=== PATIENT | female | born 1975 | race African-American/Black ===

== ENCOUNTER 2017-08-05 08:14 | Emergency (ER) | payer SELFPAY ==
[2017-08-05] MEDS ORDERED: LIDOCAINE 2% VISCOUS SOLN 20 ML UDCUP PO ONE (08:43)
[2017-08-05] MEDS ORDERED: HYDROCODONE/ACETAMINOPHEN 5-325 MG (6 TAB/ER DISP) PO PRN (09:32)
--- NOTE | 2017-08-05 09:37 | ER Document Report ---
ED General - General Chief Complaint: Abscess Stated Complaint: MOUTH PAIN Time Seen by Provider: 08/05/17 08:34 Mode of Arrival: Ambulatory Information source: Patient Notes: Patient is a 42-year-old female who presents to the ER today for large lump that is painful to the roof of her mouth 2 days. Patient states that last week she was having some dental pain to the upper left side, but that it does not hurt anymore around her teeth, just around this lump. Patient has not seen a dentist for this. She denies any drainage, fever, chills, history of MRSA. TRAVEL OUTSIDE OF THE [place] IN LAST 30 DAYS: No - Related Data Allergies/Adverse Reactions: No Known Allergies Allergy (Verified 08/05/17 08:18) Past Medical History - General Information source: Patient - Social History Smoking Status: Current Every Day Smoker Frequency of alcohol use: Occasional Drug Abuse: None Family History: None Patient has suicidal ideation: No Patient has homicidal ideation: No - Past Medical History Cardiac Medical History: Reports: Hx Hypertension Renal/ Medical History: Denies: Hx Peritoneal Dialysis - Immunizations Hx Diphtheria, Pertussis, Tetanus Vaccination: Yes Review of Systems - Review of Systems Constitutional: No symptoms reported EENT: See HPI Cardiovascular: No symptoms reported Respiratory: No symptoms reported Gastrointestinal: No symptoms reported Genitourinary: No symptoms reported Female Genitourinary: No symptoms reported Musculoskeletal: No symptoms reported Skin: No symptoms reported Hematologic/Lymphatic: No symptoms reported Neurological/Psychological: No symptoms reported Physical Exam - Vital signs Vitals: Temp Pulse Resp BP Pulse Ox 98.1 F 103 H 18 163/104 H 100 08/05/17 08:18 08/05/17 08:18 08/05/17 08:18 08/05/17 08:18 08/05/17 08:18 - Notes Notes: PHYSICAL EXAMINATION: GENERAL: Uncomfortable appearing, but in no acute distress. HEAD: Atraumatic, normocephalic. EYES: Pupils equal round and reactive to light, extraocular movements intact, sclera anicteric, conjunctiva are normal. ENT: ear canals without erythema or foreign body, TMs pearly [place] with good bony landmarks, nares patent, oropharynx clear without exudates. Moist mucous membranes. Poor dentition, large, 3 cm in diameter abscess to the hard palate, tender to palpation, purulence visible NECK: Normal range of motion, supple without lymphadenopathy LUNGS: CTAB and equal. No wheezes rales or rhonchi. HEART: Regular rate and rhythm without murmurs EXTREMITIES: Normal range of motion, no pitting edema. No cyanosis. NEUROLOGICAL: Cranial nerves grossly intact. Normal sensory/motor exams. PSYCH: Normal mood, normal affect. SKIN: Warm, Dry, normal turgor, no rashes or lesions noted Course - Re-evaluation Re-evalutation: 08/05/17 09:35 Abscess was drained successfully, first with 18-gauge needle producing approximately 3 cc of thick white purulence, then was numbed with lidocaine and incised with a scalpel, and drained until abscess was flat, patient tolerated procedure - Vital Signs Vital signs: Temp Pulse Resp BP Pulse Ox 98.1 F 103 H 18 163/104 H 100 08/05/17 08:18 08/05/17 08:18 08/05/17 08:18 08/05/17 08:18 08/05/17 08:18 Discharge - Discharge Clinical Impression: Abscess of mouth Condition: Stable Disposition: HOME, SELF-CARE Additional Instructions: Return immediately for any new or worsening symptoms. Follow up with primary care provider, call tomorrow to make followup appointment. See a dentist. Prescriptions: Amoxicillin 500 mg PO TID #30 capsule Referrals: [facility] [Provider Group] - Follow up as needed
[2017-08-05 09:44] VITALS: BP 132/84
== END 2017-08-05 09:54 | disposition home or self-care (01) ==
LOC: ER 08:14
PROC: 0C92XZZ Drainage of Hard Palate, External Approach (ICD-10-PCS; principal; 2017-08-05)
DX: K04.7 Periapical abscess without sinus (principal); K08.89 Other specified disorders of teeth and supporting structures; F17.200 Nicotine dependence, unspecified, uncomplicated; I10 Essential (primary) hypertension
CPT/HCPCS: 99283; 87070; 87205; 87075; 87077; 41800; J3490

== ENCOUNTER 2017-08-20 10:46 | Emergency (ER) | payer SELFPAY ==
[2017-08-20 11:17] LABS: ABSOLUTE EOSINOPHILS # (AUTO) 0.3 10^3/uL (0.0-0.6); ABSOLUTE LYMPHOCYTES (AUTO) 2.3 10^3/uL (0.5-4.7); ABSOLUTE MONOCYTES (AUTO) 0.4 10^3/uL (0.1-1.4); ABSOLUTE NEUT (AUTO) 5.3 10^3/uL (1.7-8.2); BASOPHILS % (AUTO) 0.6 % (0-2); EOSINOPHILS % (AUTO) 3.8 % (0-6); HEMATOCRIT 42.8 % (36.0-47.0); HEMOGLOBIN 14.7 g/dL (12.0-15.5); LYMPHOCYTES % (AUTO) 27.6 % (13-45); MEAN CORPUSCULAR HEMOGLOBIN 30.7 pg (27.0-33.4); MEAN CORPUSCULAR HGB CONC 34.3 g/dL (32.0-36.0); MEAN CORPUSCULAR VOLUME 90 fl (80-97); MONOCYTES % (AUTO) 4.9 % (3-13); PLATELET COUNT 476 10^3/uL (150-450); RED BLOOD COUNT 4.77 10^6/uL (3.72-5.28); RED CELL DISTRIBUTION WIDTH 14.2 % (11.5-14.0); SEGMENTED NEUTROPHILS % (AUTO) 63.1 % (42-78); TOTAL CELLS COUNTED % (AUTO) 100 %; WHITE BLOOD COUNT 8.5 10^3/uL (4.0-10.5)
--- NOTE | 2017-08-20 11:32 | ER Document Report ---
ED GI/ - General Chief Complaint: Urinary Problem Stated Complaint: BLOOD IN URINE Time Seen by Provider: 08/20/17 11:32 Mode of Arrival: Ambulatory Information source: Patient Notes: 42-year-old female complaining of pelvic pain. [place] was painful on . She started having urinary frequency urgency and dysuria on Sunday. She states her vagina is swollen. No flank pain or fever. No nausea or vomiting. Patient has an IUD TRAVEL OUTSIDE OF THE [place] IN LAST 30 DAYS: No - Related Data Allergies/Adverse Reactions: No Known Allergies Allergy (Verified 08/20/17 10:58) Past Medical History - General Information source: Patient - Social History Smoking Status: Current Every Day Smoker Chew tobacco use (# tins/day): No Frequency of alcohol use: Occasional Drug Abuse: None Lives with: Spouse/Significant other Family History: None Patient has suicidal ideation: No Patient has homicidal ideation: No - Past Medical History Cardiac Medical History: Reports: Hx Hypertension Renal/ Medical History: Denies: Hx Peritoneal Dialysis Past Surgical History: Reports: Hx Tubal Ligation - Immunizations Hx Diphtheria, Pertussis, Tetanus Vaccination: Yes Review of Systems - Review of Systems Constitutional: No symptoms reported EENT: No symptoms reported Cardiovascular: No symptoms reported Respiratory: No symptoms reported Gastrointestinal: No symptoms reported Genitourinary: See HPI Female Genitourinary: See HPI Musculoskeletal: No symptoms reported Skin: No symptoms reported Hematologic/Lymphatic: No symptoms reported Neurological/Psychological: No symptoms reported Physical Exam - Vital signs Vitals: Temp Pulse BP Pulse Ox 97.9 F 108 H 115/95 H 98 08/20/17 11:36 08/20/17 11:36 08/20/17 11:36 08/20/17 11:36 Interpretation: Normal - Notes Notes: Patient is walking forward bent from the waist - General General appearance: Appears well, Alert - HEENT Head: Normocephalic, Atraumatic Eyes: Normal Conjunctiva: Normal Pupils: PERRL Neck: Supple. No: Lymphadenopathy - Respiratory Respiratory status: No respiratory distress Chest status: Nontender Breath sounds: Normal Chest palpation: Normal - Cardiovascular Rhythm: Regular Heart sounds: Normal auscultation Murmur: No - Abdominal Inspection: Normal Distension: No distension Bowel sounds: Normal Tenderness: Nontender, Tender - Suprapubic Organomegaly: No organomegaly - Genitourinary External exam: Other - right Bartholin's gland cyst which is nontender or red Speculum exam: Cervix closed, Vaginal discharge - creamy yellow Vaginal bleeding: None Bimanuel exam: Cervical motion tender - Back Back: Normal, Nontender - Extremities General upper extremity: Normal inspection, Nontender, Normal color, Normal ROM , Normal temperature General lower extremity: Normal inspection, Nontender, Normal color, Normal ROM , Normal temperature, Normal weight bearing. No: Christina's sign - Neurological Neuro grossly intact: Yes Cognition: Normal Orientation: AAOx4 [place] Coma Scale Eye Opening: Spontaneous [place] Coma Scale Verbal: Oriented [place] Coma Scale Motor: Obeys Commands [place] Coma Scale Total: 15 Speech: Normal Motor strength normal: LUE, RUE, LLE, RLE Sensory: Normal - Psychological Associated symptoms: Normal affect, Normal mood - Skin Skin Temperature: Warm Skin Moisture: Dry Skin Color: Normal Course - Re-evaluation Re-evalutation: 08/20/17 12:22 Urine with greater than 182 WBCs and greater than 182 RBCs indicating urinary tract infection with a positive nitrite trace of bacteria. urine culture and is pending 08/20/17 12:56 Patient having pain and she wants it treated and nausea no vomiting. Did not eat anything today. - Vital Signs Vital signs: Temp Pulse Resp BP Pulse Ox 97.9 F 108 H 115/95 H 98 08/20/17 11:36 08/20/17 11:36 08/20/17 11:36 08/20/17 11:36 - Laboratory Result Diagrams: 08/20/17 11:05 08/20/17 11:05 Laboratory results interpreted by me: 08/20/17 08/20/17 11:05 11:05 RDW 14.2 H Plt Count 476 H Urine Protein >=500 H Urine Blood MODERATE H Urine Nitrite POSITIVE H Ur Leukocyte Esterase LARGE H Discharge - Discharge Clinical Impression: Bartholin gland cyst, Pelvic pain, Vaginal discharge, Trichomoniasis Urinary tract infection Qualifiers: Urinary tract infection type: acute cystitis Hematuria presence: with hematuria Qualified Code(s): N30.01 - Acute cystitis with hematuria Condition: Good Disposition: HOME, SELF-CARE Instructions: Azithromycin ([facility]), Cephalexin ([facility]), Rocephin ([facility]), Urinary Anesthetic Agent ([facility]), Urinary Tract Infection ([facility]), Metronidazole ([facility]) Additional Instructions: warm compress rocephin given for the urinary tract infection and possible gonorrhea azithromycin for possible chlamydia pyridium for urinary pain\ keflex four times per day for urinary tract infection see obgyn if the bartholin gland continues to be swollen if the cyst gets bigger if more painful return to er no alcohol with the flagyl (metronidazole) call me in 2 hours for the gonorrhea and chlamydia std test results Prescriptions: Promethazine HCl [Phenergan 25 mg Tablet] 25 mg PO Q4HP PRN #20 tablet PRN Reason: Ibuprofen [Motrin 800 mg Tablet] 800 mg PO Q8HP PRN #30 tablet PRN Reason: Cephalexin Monohydrate [Keflex 500 mg Capsule] 500 mg PO QID #28 capsule Metronidazole 2,000 mg PO ONCE PRN #4 tablet PRN Reason: Phenazopyridine HCl [Pyridium 100 Mg Tablet] 100 mg PO TIDP PRN #10 tablet PRN Reason: Referrals: DONIS BURDICK MD [ACTIVE STAFF] - Follow up as needed
[2017-08-20 11:37] LABS: ALANINE AMINOTRANSFERASE 28 U/L (9-52); ALBUMIN 4.4 g/dL (3.5-5.0); ALKALINE PHOSPHATASE 64 U/L (38-126); ANION GAP 14 (5-19); ASPARTATE AMINO TRANSFERASE 16 U/L (14-36); BILIRUBIN,DIRECT 0.3 mg/dL (0.0-0.4); BILIRUBIN,TOTAL 0.5 mg/dL (0.2-1.3); BLOOD UREA NITROGEN 11 mg/dL (7-20); CALCIUM 10.1 mg/dL (8.4-10.2); CARBON DIOXIDE 23 mmol/L (22-30); CHLORIDE 107 mmol/L (98-107); GLUCOSE 97 mg/dL (75-110); LIPASE 75.5 U/L (23-300); POTASSIUM 4.4 mmol/L (3.6-5.0); SODIUM 144.1 mmol/L (137-145); TOTAL PROTEIN 7.8 g/dL (6.3-8.2)
[2017-08-20 12:09] LABS: APPEARANCE,URINE TURBID; BILIRUBIN,URINE NEGATIVE (NEGATIVE); GLUCOSE, URINE NEGATIVE (NEGATIVE); KETONES,URINE NEGATIVE (NEGATIVE); LEUKOCYTE ESTERASE,URINE LARGE (NEGATIVE); NITRITE,URINE POSITIVE (NEGATIVE); PROTEIN,URINE >=500 mg/dL (NEGATIVE); URINE SPECIFIC GRAVITY 1.018; UROBILINOGEN,URINE NEGATIVE mg/dL (<2.0)
[2017-08-20 12:10] LABS: COLOR,URINE AMBER
[2017-08-20] MEDS ORDERED: CEFTRIAXONE INJ 1000 MG VIAL IM ONE (12:21)
[2017-08-20] MEDS ORDERED: LIDOCAINE 1% INJ-PF (10 MG/ML) 30 ML SDV INFIL ONE (12:21)
[2017-08-20] MEDS ORDERED: ONDANSETRON HCL INJ/PF 4 MG/2 ML SDV IV ONE (12:55)
[2017-08-20] MEDS ORDERED: MORPHINE SULFATE 10 MG/ML INJ IV ONE (12:55)
[2017-08-20] MEDS ORDERED: CEFTRIAXONE INJ 1000 MG VIAL IV ONE (12:55)
[2017-08-20] MEDS ORDERED: NORMAL SALINE 1000 ML 1,000 ML IV ONE (12:55)
[2017-08-20] MEDS ORDERED: KETOROLAC TROMETHAMINE INJ/PF 30 MG/1 ML SDV IV ONE (13:14)
[2017-08-20] MEDS ORDERED: ONDANSETRON HCL INJ/PF 4 MG/2 ML SDV ONE (13:41)
[2017-08-20] MEDS ORDERED: PHENAZOPYRIDINE HCL 200 MG TABLET PO ONE (13:57)
[2017-08-20] MEDS ORDERED: AZITHROMYCIN 250 MG TABLET PO ONE (14:32)
[2017-08-20 14:45] LABS: BACTERIA (WET MOUNT) 4+ BACTERIA SEEN; EPITHELIALS (WET MOUNT) 3+ EPITHELIALS SEEN; T.VAGINALIS (WET MOUNT) TRICHOMONAS SEEN; WBCS (WET MOUNT) 3+ WBCS SEEN; YEAST (WET MOUNT) NO YEAST SEEN
[2017-08-20] MEDS ORDERED: METRONIDAZOLE 500 MG TABLET PO ONE (15:06)
[2017-08-20 16:04] VITALS: BP 121/88
[2017-08-20 16:10] LABS: CHLAM PCR NOT DETECTED (NOT DETECT); GON PCR NOT DETECTED (NOT DETECT)
== END 2017-08-20 16:04 | disposition home or self-care (01) ==
LOC: ER 10:46
DX: N30.01 Acute cystitis with hematuria (principal); A59.00 Urogenital trichomoniasis, unspecified; N75.0 Cyst of Bartholin's gland; R10.2 Pelvic and perineal pain; F17.200 Nicotine dependence, unspecified, uncomplicated; I10 Essential (primary) hypertension; Z98.51 Tubal ligation status
CPT/HCPCS: 99283; 96361; 96375; 96365; 36415; 87086; 87210; 83690; 84703; 85025; 87088; 80053; 81001; 87186; 87491; 87591; J1885; J3490; J0696; J2405; J7030

== ENCOUNTER 2017-09-12 01:39 | Emergency (ER) | payer SELFPAY ==
--- NOTE | 2017-09-12 02:35 | ER Document Report ---
HPI - HPI Patient complains to provider of: scalp problem Pain Level: 5 Context: Patient is a 42-year-old female who comes emergency department for chief complaint of scalp irritation. She states that whenever she brushes her hair a lot of "white balls,", she states that when she sweats she sees darker colored balls come out as well. She states she has been in different rooms and houses at work and she wonders if she got into an infestation. She denies hair loss, she states she had 2 bumps on her head but these both resolved, she denies any areas with purulent drainage, she denies fever, she denies itching. This has been going on for a couple of weeks. She states she has tried different shampoos , washing everyday, cutting her hair, and Rid-X. She denies any daily medications or any past medical history. - REPRODUCTIVE Reproductive: DENIES: : Past Medical History - General Information source: Patient - Social History Smoking Status: Never Smoker Frequency of alcohol use: None Drug Abuse: None Lives with: Family Family History: None - Past Medical History Cardiac Medical History: Reports: Hx Hypertension Renal/ Medical History: Denies: Hx Peritoneal Dialysis Past Surgical History: Reports: Hx Tubal Ligation - Immunizations Hx Diphtheria, Pertussis, Tetanus Vaccination: Yes Vertical Provider Document - CONSTITUTIONAL General Appearance: WD/WN, No Apparent Distress - INFECTION CONTROL TRAVEL OUTSIDE OF THE [place] IN LAST 30 DAYS: No - HEENT HEENT: Atraumatic, Normal ENT Exam, Normocephalic - NECK Neck: Normal Inspection - RESPIRATORY Respiratory: Breath Sounds Normal, No Respiratory Distress - CARDIOVASCULAR Cardiovascular: Regular Rate, Regular Rhythm - GI/ABDOMEN Gastrointestinal: Abdomen Soft, Abdomen Non-Tender - BACK Back: Normal Inspection - MUSCULOSKELETAL/EXTREMETIES Musculoskeletal/Extremeties: MAEW, FROM, Non-Tender - NEURO Level of Consciousness: Awake, Alert Motor/Sensory: No Motor Deficit, No Sensory Deficit - DERM Integumentary: Warm Notes: scalp examined closely, noted small white material that appear to have come from a cloth or towel, no sores, plaques, papules, vesicles, abscess, tender areas, or insects noted. Normal appearing hair and scalp. Course - Re-evaluation Re-evalutation: Patient continuously rubbing her hair, however close inspection of the scalp does not show any excoriated areas, abscess, vesicles, pustules, plaques, insects, or other abnormalities. Small white material and hair consistent with towel remains, showed this to patient, advised her this appeared to be from clothing. Patient insists something is wrong with her scalp. Discussed different washing options, eventually discussed permethrin rinse which will be prescribed. Patient expresses frustration without being told specifically told what is wrong, unfortunately there is nor obvious abnormality. However, patient and family member did express agreement with plan and patient has no further requests when asked. - Vital Signs Vital signs: Temp Pulse Resp BP Pulse Ox 98.3 F 88 16 136/90 H 100 09/12/17 01:46 09/12/17 01:46 09/12/17 01:46 09/12/17 01:46 09/12/17 01:46 Discharge - Discharge Clinical Impression: Scalp irritation Condition: Stable Disposition: HOME, SELF-CARE Additional Instructions: No obvious abnormalities are seen with your examination today. Recommendation is to apply the cream/rinse as directed. If symptoms continue follow-up with primary care and/ore dermatology referral listed. Return for any concerning symptoms including swelling, fever, or any other concerning symptoms. Prescriptions: Permethrin [Elimite] 60 gm TP ASDIR PRN #1 cream.gm. PRN Reason: Forms: Return to Work Referrals: LYN JACKSON DO [ACTIVE STAFF] - Follow up as needed
[2017-09-12 03:04] VITALS: BP 159/92
== END 2017-09-12 03:13 | disposition home or self-care (01) ==
LOC: ER 01:39
DX: I10 Essential (primary) hypertension (principal)
CPT/HCPCS: 99283